=== PATIENT | male | born 1960 | race Caucasian/White ===

== ENCOUNTER 2020-02-21 09:43 | Emergency (ER) | payer MEDICAID, SELFPAY ==
--- NOTE | ~2020-02-21 | CT_ITS ---
EXAMINATION: CT abdomen pelvis wo con EXAM DATE: 02/21/2020 12:12 INDICATION: Low back pain, urinary frequency . TECHNIQUE: Spiral CT of the abdomen and pelvis was performed without contrast. Axial, coronal and sag ittal images were reviewed. The dose-length product (DLP) for this examination was 506.97 mGy-cm. T he exposure was tailored according to patient size (auto mA exposure control), and iterative reconstr uction (ASIR) was used as additional dose reduction technique. There is no prior study for compariso n. FINDINGS: There is no nephrolithiasis or hydronephrosis. There is moderate prostatomegaly. The blad oleksandr is unremarkable. Several subcentimeter liver cysts. Spleen, adrenal glands, pancreas are unremar kable. Gallbladder is unremarkable. No biliary obstruction. There is no retroperitoneal or pelvic lymphadenopathy. There is mild scattered arteriosclerotic disease. The appendix is normal. The stomach and small bowel are unremarkable. There is moderate amount of c olonic stool. There is mild sigmoid colonic diverticulosis. There is no adjacent inflammatory change to suggest diverticulitis. No free intraperitoneal gas. The heart is normal in size. There are n o pericardial or pleural effusions. The lung bases are unremarkable. There are no osteoblastic or o steolytic lesions identified. IMPRESSION: 1. No nephrolithiasis, hydronephrosis or acute intra-abdominal findings. 2. Moderate prostatomegaly. 3. Moderate colonic stool. 4. Mild sigmoid diverticulosis. Reviewed, dictated and finalized at [facility]. [employer] MON[employer] TECHNICIAN
[2020-02-21 09:57] VITALS: BP 151/98; PULSE 88; RESP 17; TEMP 36.5; O2SAT 99
[2020-02-21 10:23] LABS: Add Urine Microscopic? NO; Appearance Urine Clear (Clear); Bilirubin Urine Negative (Negative); Blood Urine Negative (Negative); Color Urine Yellow (Yellow); Glucose Urine UA Negative (Negative); Ketones Urine Negative (Negative); Leukocyte Esterase Ur Negative LEU/UL (Negative); Mucus Urine Rare /lpf; Nitrate Urine Negative (Negative); Protein Urine Negative (Negative); RBC Urine 0-2 /hpf (0-2); Specific Grav Ur 1.011 (1.001-1.035); Squamous Epithelial Cell Urine Rare /hpf (Few); Urobilinogen Urine Negative mg/dL (<2.0)
[2020-02-21 10:34] LABS: Basophils Absolute Auto 0.1 K/mm3 (0.0-0.1); Basophils Percent Auto 1.8 % (0.2-1.2); Eosinophils Absolute Auto 0.1 K/mm3 (0-0.3); Eosinophils Percent Auto 1.3 % (0-4.4); Hemoglobin 16.6 g/dL (14.0-18.0); Immature Granulocyte Absolute 0.01 K/mm3 (0.00-0.031); Immature Granulocyte Percent A 0.2 % (0-0.5); Lymphocytes Absolute Auto 1.25 K/mm3 (0.9-3.2); Lymphocytes Percent Auto 23.1 % (18.3-44.2); Mean Corpuscular HGB Conc 34.6 g/dl (32-36); Mean Corpuscular Hemoglobin 30.6 pg (26-34); Mean Corpuscular Volume 88.6 fl (80-100); Mean Platelet Volume 10.6 fl (7.4-10.4); Monocytes Absolute Auto 0.5 K/mm3 (0.1-0.6); Monocytes Percent Auto 8.7 % (2.6-8.5); Neutrophils Absolute Auto 3.5 K/mm3 (1.3-6.7); Neutrophils Percent Auto 64.9 % (45.5-73.1); Platelet Count Result 259 k/mm3 (150-375); Red Blood Count 5.42 M/mm3 (4.6-6.20); Red Cell Distribution Width 13.3 % (11.5-14.5); White Blood Count 5.4 K/mm3 (4.5-10.0)
--- NOTE | 2020-02-21 10:36 | ED.BACK ---
HPI - Back Pain/Injury General Chief Complaint: Urogenital-Male Stated Complaint: back pain, brown urine Time Seen by Provider: 02/21/20 10:04 Source: patient Mode of arrival: ambulatory Limitations: no limitations History of Present Illness HPI Narrative: This is a 60-year-old male that presents emergency department for dark urine that he noted this morning. Also reports over the last couple of days he has had some intermittent low back pain which is sharp in nature. Worse with movement and relieved with rest. Does not remember a certain injury. Does report he has recently started a new job and has to stand for a prolonged period of time. Reports history of diabetes and that he has been out of his Metformin. Reports he has been taking his wives dose the last week which is a lower dose. Denies fever, abdominal pain, nausea, vomiting, or dysuria. Related Data Allergies Allergy/AdvReac Type Severity Reaction Status Date / Time No Known Allergies Allergy Verified 02/21/20 11:03 Review of Systems Review of Systems: Narrative: CONSTITUTIONAL: Denies fever GASTROINTESTINAL: Denies abdominal pain, nausea, vomiting GENITOURINARY: Denies dysuria or hematuria. MUSCULOSKELETAL: Reports back pain, joint pain, and myalgia. NEUROLOGIC: Denies numbness, or weakness. All systems reviewed & are unremarkable except as noted in HPI and below PMFSH Past Medical History Medical History (Updated 02/21/20 @ 12:59 by Kirsten Tomlinson PA-C) History of diabetes mellitus History of hypertension Social History Social History Gender identity (if verbalized by the patient): Male Exam Narrative: Exam Narrative: GENERAL: Well-appearing, well-nourished, and in no acute distress. HEAD: Normocephalic, atraumatic. EYES: EOMI. CHEST: Clear to auscultation. No respiratory distress. No wheezes rales or rhonchi HEART: Regular rate and rhythm. No murmur heard. Normal peripheral pulses. ABDOMEN: Soft, nontender, nondistended, normal active bowel sounds. No CVA tenderness BACK: No midline spinal tenderness EXTREMITIES: Normal range of motion. No edema. Strength equal in bilateral lower extremities (5/5) SKIN: Warm, dry, no rash. NEURO: No focal deficits. Alert and oriented x3. PSYCH: Normal mood and affect Course Vital Signs Vital signs: Vital Signs Temperature 97.7 F 02/21/20 09:57 Pulse Rate 88 02/21/20 09:57 Respiratory Rate 17 02/21/20 09:57 Blood Pressure 151/98 H 02/21/20 09:57 Pulse Oximetry 99 02/21/20 09:57 Temperature 97.9 F 02/21/20 11:47 Pulse Rate 73 02/21/20 12:49 Respiratory Rate 17 02/21/20 12:49 Blood Pressure 124/85 02/21/20 12:49 Pulse Oximetry 100 02/21/20 12:49 MDM - Back Pain/Injury MDM Narrative Medical decision making narrative: Patient presents to the emergency department for lower back pain and dark urine today. Patient is afebrile and nontoxic-appearing. Blood pressure mildly elevated on arrival, this normalized without intervention. Patient is neurologically intact. CBC and metabolic panel without concerning findings. UA is normal. CRP is not elevated. CT scan of the abdomen and pelvis is without acute findings. Patient and family updated on case findings. He was instructed to rest, ice and take [id number] pain medication as needed. He is to follow-up with his primary care doctor. He was given warnings to return to the ER Lab Data Attestation: I reviewed the patient's lab results. Result diagrams: 02/21/20 10:25 02/21/20 10:24 Labs: Lab Results 02/21/20 02/21/20 02/21/20 Range/Units 10:09 10:24 10:24 WBC (4.5-10.0) K/mm3 RBC (4.6-6.20) M/mm3 Hgb (14.0-18.0) g/dL Hct (42.0-52.0) % MCV (80-100) fl MCH (26-34) pg MCHC (32-36) g/dl RDW (11.5-14.5) % Plt Count (150-375) k/mm3 MPV (7.4-10.4) fl Immature Gran % (Auto) (0-0.5) % Neut % (Auto) (45.5-73.1) % Lymph % (
--- NOTE | 2020-02-21 10:39 | PC.NURSE ---
called chem, added on CMP and C-Reactive prot
[2020-02-21 11:01] LABS: Alanine Aminotransferase 15 U/L (4-50); Albumin Level 3.9 g/dL (3.5-5.1); Alkaline Phosphatase 79 U/L (38-126); Anion Gap 4 mmol/L (8-16); Aspartate Amino Transferase 20 U/L (17-59); Bilirubin,Total 0.5 mg/dL (0.2-1.3); Blood Urea Nitrogen 11 mg/dL (9-20); CRP < 0.5 mg/dL (<1.0); Calcium 8.9 mg/dL (8.4-10.2); Carbon Dioxide 29 mmol/L (22-30); Chloride 102 mmol/L (98-107); Estimated CRCL calculation 92 ml/min; Estimated Glomerular Filt Rate > 60; Glucose 115 mg/dL (75-110); Sodium 135 mmol/L (137-145)
[2020-02-21 11:04] VITALS: BP 125/76; PULSE 76; RESP 15; O2SAT 98
--- NOTE | 2020-02-21 11:38 | PC.NURSE ---
Called Gisele landon, added on HGB A1C 1134
[2020-02-21 11:47] VITALS: BP 105/63; PULSE 75; RESP 15; TEMP 36.6; O2SAT 99
[2020-02-21 11:56] LABS: Hemoglobin A1C 6.3 % (<5.7)
--- NOTE | 2020-02-21 12:06 | PC.NURSE ---
Pt to Ct scan via stretcher.
[2020-02-21 12:49] VITALS: BP 124/85; PULSE 73; RESP 17; O2SAT 100
== END 2020-02-21 13:23 | disposition home or self-care (01) ==
PROVIDERS: Physician Assistant; Emergency Provider Emergency Medicine; PCP Emergency Medicine
DX: M54.5 Low back pain (principal); E11.9 Type 2 diabetes mellitus without complications; I10 Essential (primary) hypertension; N40.0 Benign prostatic hyperplasia without lower urinary tract symptoms; K57.90 Diverticulosis of intestine, part unspecified, without perforation or abscess without bleeding
CPT/HCPCS: 36415; 74176; 80053; 81003; 83036; 85025; 86140; 96365; 99284; J0131

== ENCOUNTER 2020-02-29 12:18 | Outpatient (NON) | payer MEDICAID, SELFPAY ==
[2020-03-01 19:17] LABS: SARS-CoV-2 RNA PCR Negative
== END 2020-02-29 12:19 ==
PROVIDERS: PCP Emergency Medicine; Visit Provider Emergency Medicine
DX: Z20.828 Contact with and (suspected) exposure to other viral communicable diseases (principal); R05 Cough
CPT/HCPCS: 87635; C9803; U0003

== ENCOUNTER 2020-04-26 10:05 | Emergency (ER) | payer OTHER, SELFPAY ==
[2020-04-26 10:13] VITALS: BP 121/74; PULSE 80; RESP 12; TEMP 36.6; O2SAT 100
--- NOTE | 2020-04-26 11:46 | ED.GENADULT ---
HPI - General Adult General Chief complaint: Skin/Abscess/Foreign Body Stated complaint: FINGERS BROKE OUT Time Seen by Provider: 04/26/20 10:59 Source: patient Mode of arrival: ambulatory Limitations: no limitations History of Present Illness HPI narrative: Patient presents with chief complaint of rash on his fingertips that he has noticed worsening of the past few weeks. 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 Patient states that his coworker saw the rash on his fingers yesterday and stated that he needs it to be checked out to make sure that he was not contagious. Patient reports rash is slightly pruritic but otherwise not bothersome. He denies any drainage from the lesions, fever, chills, tracking, exposure to scabies or any other concerns. Related Data Allergies Allergy/AdvReac Type Severity Reaction Status Date / Time No Known Allergies Allergy Verified 02/21/20 11:03 Review of Systems Review of Systems: Narrative: CONSTITUTIONAL: Denies fever, chills, or sweats. EYES: Denies visual changes, redness, or discharge. ENT: Denies rhinorrhea, congestion, sore throat, or otalgia. CARDIOVASCULAR: Denies chest pain, palpitations, or edema. RESPIRATORY: Denies cough or dyspnea. GASTROINTESTINAL: Denies abdominal pain, nausea, vomiting, or diarrhea. GENITOURINARY: Denies dysuria or hematuria. SKIN: Reports rash and itching. MUSCULOSKELETAL: Denies back pain, joint pain, or myalgia. NEUROLOGIC: Denies headache, numbness, dizziness, or weakness. PSYCHIATRIC: Denies anxiety or depression. PMFSH Past Medical History Medical History (Updated 04/26/20 @ 11:50 by Josemanuel Schulte PA-C) History of diabetes mellitus History of hypertension Social History Social History Gender identity (if verbalized by the patient): Male Exam Narrative: Exam Narrative: GENERAL: Well-appearing, well-nourished, and in no acute distress. HEAD: Normocephalic, atraumatic. EYES: PERRLA and EOMI. NECK: Supple. No adenopathy or masses. No carotid bruits or JVD CHEST: No respiratory distress. No tachypnea or shortness of breath EXTREMITIES: Normal range of motion. No edema. SKIN: Dyshidrotic eczema noted on patient bilateral hands. There are no signs of infection, erythema, ecchymosis, drainage from the areas. Patient skin is dry. no signs of scabies or tracking. Warm, dry, no rash. NEURO: No focal deficits. Alert and oriented x3. PSYCH: Normal mood and affect. Course Vital Signs Vital signs: Vital Signs Temperature 97.8 F 04/26/20 10:13 Pulse Rate 80 04/26/20 10:13 Respiratory Rate 12 04/26/20 10:13 Blood Pressure 121/74 04/26/20 10:13 Pulse Oximetry 100 04/26/20 10:13 Temperature 97.8 F 04/26/20 10:13 Pulse Rate 80 04/26/20 10:13 Respiratory Rate 12 04/26/20 10:13 Blood Pressure 121/74 04/26/20 10:13 Pulse Oximetry 100 04/26/20 10:13 Medical Decision Making MDM Narrative Medical decision making narrative: Discussed with patient her diagnosis of dyshidrotic eczema and the plan to keep hands well moisturized but clean and dry and to apply triamcinolone ointment. Patient instructed to follow-up with his primary care for reevaluation of the areas. He has been informed that if they persist or worsen he may need dermatology consult. Differential Diagnosis Differential Diagnosis: Cellulitis, abscess, scabies, bedbugs, dyshidrotic eczema Vital Signs Vital Signs: Vital Signs Temperature 97.8 F 04/26/20 10:13 Pulse Rate 80 04/26/20 10:13 Respiratory Rate 12 04/26/20 10:13 Blood Pressure 121/74 04/26/20 10:13 Pulse Oximetry 04/26/20 10:13 Temperature 97.8 F 04/26/20 10:13 Pulse Rate 80 04/26/20 10:13 Respiratory Rate 12 04/26/20 10:13 Blood Pressure 121/74 04/26/20 10:13 Pulse Oximetry 100 04/26/20 10:13 Discharge Plan Discharge Clinical Impression: Dyshidrotic eczema Patient Dispositi
== END 2020-04-26 12:09 | disposition home or self-care (01) ==
PROVIDERS: Emergency Provider Emergency Medicine; PCP Emergency Medicine
DX: L30.1 Dyshidrosis [pompholyx] (principal); E11.9 Type 2 diabetes mellitus without complications; I10 Essential (primary) hypertension
CPT/HCPCS: 99283

== ENCOUNTER → 2020-05-25 06:55 | Outpatient (CLI) | payer OTHER, SELFPAY ==
[2020-05-25 20:42] LABS: SARS-CoV-2 RNA PCR Negative
== END ==
PROVIDERS: PCP Emergency Medicine; Visit Provider Emergency Medicine
DX: Z20.822 Contact with and (suspected) exposure to COVID-19 (principal)
CPT/HCPCS: C9803; U0003; U0005

== ENCOUNTER → 2020-05-31 11:18 | Outpatient (CLI) | payer OTHER, SELFPAY ==
[2020-05-31 23:32] LABS: SARS-CoV-2 RNA PCR Negative
== END ==
PROVIDERS: PCP Emergency Medicine; Visit Provider Emergency Medicine
DX: Z20.822 Contact with and (suspected) exposure to COVID-19 (principal)
CPT/HCPCS: C9803; U0003; U0005

== ENCOUNTER 2020-06-13 17:45 | Emergency (ER) | payer OTHER, SELFPAY ==
[2020-06-13 17:49] VITALS: BP 146/91; PULSE 91; RESP 18; TEMP 35.9; O2SAT 100
--- NOTE | 2020-06-13 18:18 | ED.GENADULT ---
HPI - General Adult General Chief complaint: Unspecified Stated complaint: covid vaccine, feel funny Time Seen by Provider: 06/13/20 17:56 Source: patient and family Mode of arrival: ambulatory Limitations: no limitations History of Present Illness HPI narrative: Patient is a 60-year-old male who presents to emergency department for evaluation of chills and body aches an episode of nausea after receiving his COVID-19 vaccine this morning this was the patient's first dose patient on arrival is in the room in no distress does not appear uncomfortable does note headache notes that he had felt fine prior to getting the vaccine and has not taken anything other than ibuprofen for his symptoms Related Data Allergies Allergy/AdvReac Type Severity Reaction Status Date / Time No Known Allergies Allergy Verified 06/13/20 17:52 Review of Systems Review of Systems: All systems reviewed & are unremarkable except as noted in HPI and below PMFSH Past Medical History Medical History History of diabetes mellitus History of hypertension Social History Social History Gender identity (if verbalized by the patient): Male Exam Narrative: Exam Narrative: GENERAL: Well-appearing, well-nourished, and in no acute distress. HEAD: Normocephalic, atraumatic. EYES: PERRLA and EOMI. ENT: Nares clear, no rhinorrhea or epistaxis. Mucous membranes moist. CHEST: Clear to auscultation. No respiratory distress. No wheezes rales or rhonchi HEART: Regular rate and rhythm. No murmur heard. EXTREMITIES: Normal range of motion. No edema. SKIN: Warm, dry, no rash. NEURO: No focal deficits. Alert and oriented x3. PSYCH: Normal mood and affect. Course Course Emergency Course: Patient in the room in no distress aware of case findings treatment plan and diagnosis Vital Signs Vital signs: Vital Signs Temperature 96.6 F L 06/13/20 17:49 Pulse Rate 91 06/13/20 17:49 Respiratory Rate 18 06/13/20 17:49 Blood Pressure 146/91 H 06/13/20 17:49 Pulse Oximetry 100 06/13/20 17:49 Temperature 96.6 F L 06/13/20 17:49 Pulse Rate 91 06/13/20 17:49 Respiratory Rate 18 06/13/20 17:49 Blood Pressure 146/91 H 06/13/20 17:49 Pulse Oximetry 100 06/13/20 17:49 Medical Decision Making MDM Narrative Medical decision making narrative: Patient in the room in no distress aware of case findings treatment plan diagnosis symptoms likely related to receiving the vaccine felt appropriate for outpatient reevaluation given reasons to return Vital Signs Vital Signs: Vital Signs Temperature 96.6 F L 06/13/20 17:49 Pulse Rate 91 06/13/20 17:49 Respiratory Rate 18 06/13/20 17:49 Blood Pressure 146/91 H 06/13/20 17:49 Pulse Oximetry 100 06/13/20 17:49 Temperature 96.6 F L 06/13/20 17:49 Pulse Rate 91 06/13/20 17:49 Respiratory Rate 18 06/13/20 17:49 Blood Pressure 146/91 H 06/13/20 17:49 Pulse Oximetry 100 06/13/20 17:49 Discharge Plan Discharge Clinical Impression: Adverse reaction to vaccine Patient Disposition: Home, Self-Care Condition: Stable Instructions: Antibiotic Form, Allergies (ED) Additional Instructions: Follow up with your primary care provider within 5-7 days. Go to ER for shortness of breath, difficulty breathing, chest pain, fever/chills, weakness, nauseau/vomitting, etc. or any other concerns. Stay well-hydrated Take any prescribed medications as directed. Follow patient education sheet If you do not have a drug allergy to tylenol or motrin and can tolerate it then take tylenol or motrin as needed for discomfort/pain. Prescriptions: No Action lisinopril 10 mg tablet 10 mg PO DAILY 7 Days Qty: 7 RF: 0 triamcinolone acetonide 0.1 % ointment 1 applic topical BID Qty: 15 RF: 0 Follow-up/Referrals: eWs Venegas MD [Primary Care Provider] - [place]
== END 2020-06-13 18:30 | disposition home or self-care (01) ==
PROVIDERS: Emergency Provider Emergency Medicine; PCP Emergency Medicine
DX: R51.9 Headache, unspecified (principal); R68.83 Chills (without fever); R11.0 Nausea; T50.B95A Adverse effect of other viral vaccines, initial encounter
CPT/HCPCS: 99281

== ENCOUNTER 2020-07-13 07:33 | Emergency (ER) | payer OTHER, SELFPAY ==
[2020-07-13 07:40] VITALS: BP 164/94; PULSE 87; RESP 18; TEMP 37.1; O2SAT 98
[2020-07-13 07:42] LABS: Glucose Point of Care 235 (65-105)
--- NOTE | 2020-07-13 08:02 | ED.GENADULT ---
HPI - General Adult General Chief complaint: Recheck/Abnormal Lab/Rx Stated complaint: high blood sugar Time Seen by Provider: 07/13/20 07:36 Source: RN notes reviewed History of Present Illness HPI narrative: Patient presents to emergency department from home for hyperglycemia. Patient states that he woke this morning and had a blood sugar of 472. Patient states he is on Metformin at 1000 mg twice a day which had been increased approximately months ago states he is taking his Metformin this morning came to the ER for further evaluation the blood sugar has progressively decreased he states he is not eating anything today. He states that recently his blood sugars have been running around 260 he denies any fevers or chills chest pain shortness of breath abdominal pain nausea vomiting or any other symptoms Related Data Home Medications Medication Instructions Recorded Confirmed lisinopril 20 mg PO DAILY 07/13/20 07/13/20 metformin 1,000 mg PO BID 07/13/20 07/13/20 simvastatin 10 mg PO HS 07/13/20 07/13/20 Allergies Allergy/AdvReac Type Severity Reaction Status Date / Time No Known Allergies Allergy Verified 07/13/20 07:48 Review of Systems Review of Systems: Narrative: Gen.: Denies fevers or chills ENT: Denies congestion Respiratory: Denies shortness of breath or cough CV: Denies chest pain or palpitations GI: Denies abdominal pain nausea, emesis or diarrhea Musculoskeletal: Denies back pain or muscle pain Neuro: Denies numbness, tingling, weakness or focal weakness Skin: Denies rash Endocrine: See HPI Except as documented, all other systems reviewed and negative [facility] Past Medical History Medical History History of diabetes mellitus History of hypertension Social History Social History (Updated 07/13/20 @ 08:03 by Jasper Zhou DO) Smoking status: Never smoker Gender identity (if verbalized by the patient): Male Exam Narrative: Exam Narrative: APPEARANCE: No acute distress, nontoxic, resting in bed EYES: EOMI HEENT: Normocephalic, atraumatic, OMM RESPIRATORY: No respiratory distress Clear to auscultation bilaterally with no rhonchi wheezing or rales. CARDIOVASCULAR: Regular rate and rhythm without murmurs rubs or gallops. ABDOMINAL: Soft, nontender, nondistended, no rebound or guarding MUSCULOSKELETAl: Moves all extremities. No clubbing, cyanosis or edema. NEURO: Awake and alert. Following commands, speech normal, no focal deficits SKIN:: Warm, dry. No rashes lesions or abrasions PSYCHIATRIC: Normal affect/mood, Course Course Emergency Course: Discussed with patient results of workup and diagnosis. Discussed need for follow-up with primary care, proper use of medication, and reasons to return to the emergency department. Patient understands and agrees to current treatment plan Vital Signs Vital signs: Vital Signs Temperature 98.8 F 07/13/20 07:40 Pulse Rate 87 07/13/20 07:40 Respiratory Rate 18 07/13/20 07:40 Blood Pressure 164/94 H 07/13/20 07:40 Pulse Oximetry 98 07/13/20 07:40 Temperature 98.8 F 07/13/20 07:40 Pulse Rate 75 07/13/20 08:57 Respiratory Rate 18 07/13/20 08:57 Blood Pressure 125/79 07/13/20 08:57 Pulse Oximetry 100 07/13/20 08:57 Medical Decision Making Vital Signs Vital Signs: Vital Signs Temperature 98.8 F 07/13/20 07:40 Pulse Rate 87 07/13/20 07:40 Respiratory Rate 18 07/13/20 07:40 Blood Pressure 164/94 H 07/13/20 07:40 Pulse Oximetry 98 07/13/20 07:40 Temperature 98.8 F 07/13/20 07:40 Pulse Rate 75 07/13/20 08:57 Respiratory Rate 18 07/13/20 08:57 Blood Pressure 125/79 07/13/20 08:57 Pulse Oximetry 100 07/13/20 08:57 Lab Data Result diagrams: 07/13/20 08:09 07/13/20 08:09 Labs: Lab Results 07/13/20 07/13/20 07/13/20 Range/Units 07:40 08:09 08:09 WBC 6.5 (4.5-10.0) K/mm3 RBC 5.25 (4.6-
[2020-07-13 08:09] VITALS: BP 126/87; PULSE 83; RESP 16; O2SAT 98
[2020-07-13] MEDS: SODIUM CHLORIDE 0.9% IV 1,000 ML 999 ML IV CONT (08:14)
[2020-07-13 08:17] LABS: Basophils Absolute Auto 0.1 K/mm3 (0.0-0.1); Basophils Percent Auto 1.8 % (0.2-1.2); Eosinophils Absolute Auto 0.1 K/mm3 (0-0.3); Eosinophils Percent Auto 0.9 % (0-4.4); Hematocrit 46.4 % (42.0-52.0); Immature Granulocyte Absolute 0.02 K/mm3 (0.00-0.031); Immature Granulocyte Percent A 0.3 % (0-0.5); Lymphocytes Percent Auto 27.7 % (18.3-44.2); Mean Corpuscular HGB Conc 34.5 g/dl (32-36); Mean Corpuscular Hemoglobin 30.5 pg (26-34); Mean Corpuscular Volume 88.4 fl (80-100); Mean Platelet Volume 10.2 fl (7.4-10.4); Monocytes Absolute Auto 0.7 K/mm3 (0.1-0.6); Monocytes Percent Auto 10.3 % (2.6-8.5); Neutrophils Absolute Auto 3.8 K/mm3 (1.3-6.7); Platelet Count Result 282 k/mm3 (150-375); Red Blood Count 5.25 M/mm3 (4.6-6.20); Red Cell Distribution Width 13.8 % (11.5-14.5); White Blood Count 6.5 K/mm3 (4.5-10.0)
[2020-07-13 08:25] VITALS: BP 135/94; PULSE 83; RESP 16; O2SAT 98
[2020-07-13 08:27] LABS: Alanine Aminotransferase 20 U/L (4-50); Albumin Level 4.4 g/dL (3.5-5.1); Alkaline Phosphatase 83 U/L (38-126); Anion Gap 8 mmol/L (8-16); Aspartate Amino Transferase 20 U/L (17-59); Bilirubin,Total 0.4 mg/dL (0.2-1.3); Blood Urea Nitrogen 9 mg/dL (9-20); Calcium 9.2 mg/dL (8.4-10.2); Carbon Dioxide 25 mmol/L (22-30); Chloride 102 mmol/L (98-107); Estimated CRCL calculation 109 ml/min; Estimated Glomerular Filt Rate > 60; Glucose 183 mg/dL (75-110); Potassium 4.3 mmol/L (3.4-5.0); Sodium 135 mmol/L (137-145)
[2020-07-13 08:37] LABS: Add Urine Microscopic? YES; Appearance Urine Clear (Clear); Bilirubin Urine Negative (Negative); Blood Urine Negative (Negative); Color Urine Straw (Yellow); Glucose Urine UA 3+ mg/dL (Negative); Ketones Urine Negative (Negative); Leukocyte Esterase Ur Negative LEU/UL (Negative); Mucus Urine Rare /lpf; Nitrate Urine Negative (Negative); Protein Urine Negative (Negative); RBC Urine 0-2 /hpf (0-2); Specific Grav Ur 1.007 (1.001-1.035); Urobilinogen Urine Negative mg/dL (<2.0); WBC Urine 0-3 /hpf
[2020-07-13 08:57] VITALS: BP 125/79; PULSE 75; RESP 18; O2SAT 100
[2020-07-13 09:00] LABS: Glucose Point of Care 118 (65-105)
[2020-07-13 09:27] VITALS: BP 140/94; PULSE 78; RESP 18; O2SAT 100
== END 2020-07-13 09:28 | disposition home or self-care (01) ==
PROVIDERS: Emergency Provider Emergency Medicine; PCP Emergency Medicine
DX: E11.65 Type 2 diabetes mellitus with hyperglycemia (principal); I10 Essential (primary) hypertension; Z79.84 Long term (current) use of oral hypoglycemic drugs
CPT/HCPCS: 36415; 80053; 81001; 82948; 85025; 96360; 99283; J7030

== ENCOUNTER 2020-07-14 15:12 | Emergency (ER) | payer OTHER, SELFPAY ==
--- NOTE | ~2020-07-14 | CT_ITS ---
EXAMINATION: CT brain wo con DATE: 07/14/2020 17:30 INDICATION: Headache. Dizziness. TECHNIQUE: Computed tomography (CT) of the head was performed without intravenous contrast. The mA wa s adjusted according to patient size. Iterative reconstruction technique was employed. Exam dose: 60 5.33 mGy-cm total exam DLP. COMPARISON: None FINDINGS: Bilateral carotid sinus internal carotid artery calcifications are noted. No intracranial mass lesion or hemorrhage or cerebrovascular accident is evident. No midline shift or mass effect. Normal ventricular size. No subdural or epidural hematoma is detected. There is focal opacification of the mid right ethmoid air cell area. The included paranasal sinuses a nd the mastoid air cells are otherwise normally developed and aerated. No fracture or bone destruction of the cranial vault. IMPRESSION: Cerebral atherosclerosis No acute intracranial finding Reviewed, dictated and finalized at [facility]. Reviewed, dictated and finalized at [facility].
[2020-07-14 15:15] VITALS: BP 143/85; PULSE 92; RESP 14; TEMP 35.9; O2SAT 98
--- NOTE | 2020-07-14 15:50 | ECG_ITS ---
Measurements Intervals [place] Rate: 84 P: 43 NH: 161 QRS: 10 QRSD: 97 T: 59 QT: 360 QTc: 427 Interpretive Statements SINUS RHYTHM NORMAL ECG Electronically Signed On 07-14-2020 17:29:29 CDT by Emil Hawk D.O.
[2020-07-14 16:10] LABS: Basophils Absolute Auto 0.1 K/mm3 (0.0-0.1); Basophils Percent Auto 1.7 % (0.2-1.2); Eosinophils Absolute Auto 0.1 K/mm3 (0-0.3); Eosinophils Percent Auto 1.8 % (0-4.4); Hematocrit 45.4 % (42.0-52.0); Hemoglobin 15.8 g/dL (14.0-18.0); Immature Granulocyte Absolute 0.03 K/mm3 (0.00-0.031); Immature Granulocyte Percent A 0.4 % (0-0.5); Lymphocytes Absolute Auto 2.36 K/mm3 (0.9-3.2); Lymphocytes Percent Auto 30.5 % (18.3-44.2); Mean Corpuscular HGB Conc 34.8 g/dl (32-36); Mean Corpuscular Hemoglobin 30.7 pg (26-34); Mean Corpuscular Volume 88.2 fl (80-100); Mean Platelet Volume 10.4 fl (7.4-10.4); Monocytes Absolute Auto 0.6 K/mm3 (0.1-0.6); Monocytes Percent Auto 7.6 % (2.6-8.5); Neutrophils Absolute Auto 4.5 K/mm3 (1.3-6.7); Platelet Count Result 301 k/mm3 (150-375); Red Blood Count 5.15 M/mm3 (4.6-6.20); Red Cell Distribution Width 13.6 % (11.5-14.5); White Blood Count 7.8 K/mm3 (4.5-10.0)
[2020-07-14 16:27] LABS: Anion Gap 5 mmol/L (8-16); Blood Urea Nitrogen 12 mg/dL (9-20); Calcium 8.8 mg/dL (8.4-10.2); Carbon Dioxide 27 mmol/L (22-30); Chloride 105 mmol/L (98-107); Estimated CRCL calculation 92 ml/min; Estimated Glomerular Filt Rate > 60; Glucose 126 mg/dL (75-110); Potassium 3.8 mmol/L (3.4-5.0); Sodium 137 mmol/L (137-145)
[2020-07-14 17:00] VITALS: BP 140/103; PULSE 84; RESP 16; O2SAT 97
--- NOTE | 2020-07-14 17:15 | ED.RECABL ---
HPI - Recheck/Abnormal Lab/Rx General Chief Complaint: Recheck/Abnormal Lab/Rx Stated Complaint: high blood pressure Time Seen by Provider: 07/14/20 16:55 Source: patient Mode of arrival: ambulatory Limitations: no limitations History of Present Illness HPI narrative: This is a 60 year old male with history of hypertension who presents for evaluation of elevated blood pressure. Patient reports he has had frequent headaches over the past 2 weeks. He also reports worsening headache and dizziness in the morning. He denies having a headache currently. He reports he has been monitoring his blood pressure over the past 24 hours. He states his BP monitor is reading in the red . He states he started taking his currently medication lisinopril 6 months ago. He states his PCP changed him from an unknown medication. His PCP increased his lisinopril to 20 mg 1 month ago. He has come in today because his friends are worried he will have a stroke. He denies focal deficits. He was evaluated in ER yesterday for hyperglycemia and he states he feels better. He denies chest pain or sob. Related Data Home Medications Medication Instructions Recorded Confirmed lisinopril 20 mg PO DAILY 07/13/20 07/13/20 metformin 1,000 mg PO BID 07/13/20 07/13/20 simvastatin 10 mg PO HS 07/13/20 07/13/20 Allergies Allergy/AdvReac Type Severity Reaction Status Date / Time No Known Allergies Allergy Verified 07/13/20 07:48 Review of Systems Review of Systems: All systems reviewed & are unremarkable except as noted in HPI and below PMFSH Past Medical History Medical History History of diabetes mellitus History of hypertension Social History Social History (Updated 07/13/20 @ 08:03 by Jasper Zhou DO) Smoking status: Never smoker Gender identity (if verbalized by the patient): Male Exam Const: General: no acute distress and alert Orientation/consciousness: patient oriented x3 HENMT: Ears: TM's normal bilaterally Eyes: Pupils: Equal, round and reactive pupils present EOM: EOMs intact bilaterally Resp: Effort & Inspection: normal respiratory effort and no retractions Auscultation: clear to auscultation bilaterally Cardio: Rate: regular rate Rhythm: regular rhythm Heart sounds: no murmurs GI: GI Palp: Yes Soft to palpation, No Tenderness to palpation present (GI) and No Guarding due to palpation present (GI) Auscultation: normal bowel sounds Skin: General skin exam: normal color Rashes: no rashes Neuro: General: patient oriented x3, moves all extremities and CN's II-XI intact bilaterally Psych: Mental Status: mental status grossly normal Affect: normal affect Course Reevaluation(s) Reevaluation #1: I discussed with patient that is blood pressure is running at his baseline. His BP at home run systolic 130-149 with diastolic 85-101. This appears to be stable. He has no chest pain, sob, headache or focal deficits. He will continue to follow up with PCP for BP checks. His CT shows sinus disease so I Will place him on meds. No antibiotics Date: 07/14/20 Time: 17:55 Vital Signs Vital signs: Vital Signs Temperature 96.6 F L 07/14/20 15:15 Pulse Rate 92 07/14/20 15:15 Respiratory Rate 14 07/14/20 15:15 Blood Pressure 143/85 H 07/14/20 15:15 Pulse Oximetry 98 07/14/20 15:15 Temperature 96.6 F L 07/14/20 15:15 Pulse Rate 76 07/14/20 18:15 Respiratory Rate 14 07/14/20 18:15 Blood Pressure 132/87 07/14/20 18:15 Pulse Oximetry 96 07/14/20 18:15 MDM - Recheck/Abnormal Lab/Rx Lab Data Result diagrams: 07/14/20 16:02 07/14/20 16:02 Labs: Lab Results 07/14/20 07/14/20 Range/Units 16:02 16:02 WBC 7.8 (4.5-10.0) K/mm3 RBC 5.15 (4.6-6.20) M/mm3 Hgb 15.8 (14.0-18.0) g/dL Hct 45.4 (42.0-52.0) % MCV 88.2 (80-100) fl MCH 30.7 (26-34) pg MCHC 34.8 (32-36) g/dl RD
[2020-07-14 17:38] VITALS: BP 135/94; BP 141/94; BP 142/94; PULSE 82; PULSE 85
[2020-07-14 17:57] VITALS: BP 132/96; PULSE 77; RESP 16; O2SAT 99
[2020-07-14 18:15] VITALS: BP 132/87; PULSE 76; RESP 14; O2SAT 96
== END 2020-07-14 18:17 | disposition home or self-care (01) ==
PROVIDERS: Emergency Medicine; Emergency Provider General Practice; PCP Emergency Medicine
DX: I10 Essential (primary) hypertension (principal); R42 Dizziness and giddiness; J32.9 Chronic sinusitis, unspecified; E11.9 Type 2 diabetes mellitus without complications; Z79.84 Long term (current) use of oral hypoglycemic drugs
CPT/HCPCS: 36415; 70450; 80048; 85025; 93005; 99283; 99284

== ENCOUNTER 2020-09-16 10:55 | Emergency (ER) | payer OTHER, SELFPAY ==
[2020-09-16 11:49] VITALS: BP 122/81; PULSE 78; RESP 16; TEMP 37; O2SAT 98
[2020-09-16 12:19] LABS: Basophils Absolute Auto 0.1 K/mm3 (0.0-0.1); Basophils Percent Auto 2.6 % (0.2-1.2); Eosinophils Absolute Auto 0.1 K/mm3 (0-0.3); Eosinophils Percent Auto 2.2 % (0-4.4); Hematocrit 44.9 % (42.0-52.0); Hemoglobin 15.3 g/dL (14.0-18.0); Immature Granulocyte Absolute 0.02 K/mm3 (0.00-0.031); Immature Granulocyte Percent A 0.4 % (0-0.5); Lymphocytes Absolute Auto 1.98 K/mm3 (0.9-3.2); Lymphocytes Percent Auto 36.7 % (18.3-44.2); Mean Corpuscular HGB Conc 34.1 g/dl (32-36); Mean Corpuscular Hemoglobin 30.1 pg (26-34); Mean Corpuscular Volume 88.4 fl (80-100); Mean Platelet Volume 10.6 fl (7.4-10.4); Monocytes Absolute Auto 0.6 K/mm3 (0.1-0.6); Monocytes Percent Auto 10.9 % (2.6-8.5); Neutrophils Absolute Auto 2.5 K/mm3 (1.3-6.7); Neutrophils Percent Auto 47.2 % (45.5-73.1); Platelet Count Result 328 k/mm3 (150-375); Red Blood Count 5.08 M/mm3 (4.6-6.20); Red Cell Distribution Width 13.9 % (11.5-14.5); White Blood Count 5.4 K/mm3 (4.5-10.0)
[2020-09-16 12:27] LABS: Add Urine Microscopic? YES; Appearance Urine Cloudy (Clear); Bilirubin Urine Negative (Negative); Blood Urine 2+ (Negative); Budding Yeast Urine Present /hpf; Color Urine Red (Yellow); Glucose Urine UA 1+ mg/dL (Negative); Ketones Urine Negative (Negative); Leukocyte Esterase Ur Negative LEU/UL (Negative); Nitrate Urine Negative (Negative); Protein Urine 2+ mg/dL (Negative); RBC Urine >75 /hpf (0-2); Specific Grav Ur 1.028 (1.001-1.035); Urobilinogen Urine Negative mg/dL (<2.0)
[2020-09-16 12:29] LABS: Alanine Aminotransferase 23 U/L (4-50); Albumin Level 4.3 g/dL (3.5-5.1); Alkaline Phosphatase 64 U/L (38-126); Anion Gap 8 mmol/L (8-16); Aspartate Amino Transferase 24 U/L (17-59); Bilirubin,Total 0.6 mg/dL (0.2-1.3); Blood Urea Nitrogen 13 mg/dL (9-20); Calcium 9.6 mg/dL (8.4-10.2); Carbon Dioxide 25 mmol/L (22-30); Chloride 108 mmol/L (98-107); Estimated CRCL calculation 92 ml/min; Estimated Glomerular Filt Rate > 60; Glucose 126 mg/dL (75-110); Potassium 4.1 mmol/L (3.4-5.0); Sodium 141 mmol/L (137-145)
[2020-09-16 13:46] VITALS: BP 101/80; PULSE 77; RESP 12; O2SAT 99
[2020-09-16 14:46] VITALS: BP 129/94; PULSE 67; RESP 16; TEMP 36.4; O2SAT 100
--- NOTE | 2020-09-16 15:32 | ED.MALEGU ---
HPI - Male Genitourinary General Chief complaint: Urogenital-Male Stated complaint: hematuria Time Seen by Provider: 09/16/20 15:16 History of Present Illness HPI Narrative: Bright red blood in his urine this morning and again when he gave the urine sample here. He denies dyuria, frequency, fever, back pain, hesitancy, or any additional symptoms. Related Data Home Medications Medication Instructions Recorded Confirmed lisinopril 20 mg PO DAILY 07/13/20 07/13/20 metformin 1,000 mg PO BID 07/13/20 07/13/20 simvastatin 10 mg PO HS 07/13/20 07/13/20 Allergies Allergy/AdvReac Type Severity Reaction Status Date / Time No Known Allergies Allergy Verified 09/16/20 14:50 Review of Systems Review of Systems: All systems reviewed & are unremarkable except as noted in HPI and below Constitutional: Constitutional: Denies chills and Denies fever(s) Cardiovascular: Cardiovascular: Denies chest pain Respiratory: Respiratory: Denies dyspnea Gastrointestinal: Gastrointestinal: Denies abdominal pain, Denies nausea and Denies vomiting Genitourinary: Genitourinary: Reports hematuria, Denies oliguria, Denies dysuria, Denies urinary frequency and Denies urinary incontinence Musculoskeletal: Musculoskeletal: Denies back pain Neurologic: Denies dizziness and Denies weakness [facility] Past Medical History Medical History History of diabetes mellitus History of hypertension Social History Social History (Updated 07/13/20 @ 08:03 by Jasper Zhou DO) Smoking status: Never smoker Gender identity (if verbalized by the patient): Male Exam Const: General: healthy appearing, no acute distress and alert HENMT: Head: normal to inspection Resp: Effort & Inspection: normal respiratory effort Auscultation: clear to auscultation bilaterally Cardio: Rate: regular rate GI: GI Palp: Yes Soft to palpation and No Tenderness to palpation present (GI) : General: Yes bladder normal to palpation Skin: General skin exam: normal color and no pallor Neuro: General: patient oriented x3, moves all extremities and no focal motor deficits Cranial nerves: Yes CN's II-XII intact bilaterally Gait exam (Neuro): Normal gait present Extrem: General: normal to inspection Psych: Appearance: grossly normal Mental Status: mental status grossly normal Affect: normal affect Course Vital Signs Vital signs: Vital Signs Temperature 37.0 C 09/16/20 11:49 Pulse Rate 78 09/16/20 11:49 Respiratory Rate 16 09/16/20 11:49 Blood Pressure 122/81 09/16/20 11:49 Pulse Oximetry 98 09/16/20 11:49 Temperature 36.4 C 09/16/20 14:46 Pulse Rate 67 09/16/20 14:46 Respiratory Rate 16 09/16/20 14:46 Blood Pressure 129/94 H 09/16/20 14:46 Pulse Oximetry 100 09/16/20 14:46 MDM - Male Genitourinary MDM Narrative Medical decision making narrative: not retaining on bladder scan. No sign of infection on UA. He will need follow-up. Differential Diagnosis Differential diagnosis: Likely urinary tract infection and acute retention of urine Medical Records Attestation: I reviewed the patient's medical records. Lab Data Attestation: I reviewed the patient's lab results. Result diagrams: 09/16/20 12:07 09/16/20 12:09 Labs: Lab Results 09/16/20 09/16/20 09/16/20 Range/Units 11:59 12:07 12:09 WBC 5.4 (4.5-10.0) K/mm3 RBC 5.08 (4.6-6.20) M/mm3 Hgb 15.3 (14.0-18.0) g/dL Hct 44.9 (42.0-52.0) % MCV 88.4 (80-100) fl MCH 30.1 (26-34) pg MCHC 34.1 (32-36) g/dl RDW 13.9 (11.5-14.5) % Plt Count 328 (150-375) k/mm3 MPV 10.6 H (7.4-10.4) fl Immature Gran % (Auto) 0.4 (0-0.5) % Neut % (Auto) 47.2 (45.5-73.1) % Lymph % (Auto) 36.7 (18.3-44.2) % [place] % (Auto) 10.9 H (2.6-8.5) % Eos % (Auto) 2.2 (0-4.4) % Baso % (Auto) 2.6 H (0.2-1.2) % Lymph # (Auto) 1.98
[2020-09-16 15:56] LABS: WBC Urine 0-3 /hpf (0-3)
[2020-09-16 16:52] VITALS: BP 118/79; PULSE 70; RESP 18; O2SAT 100
== END 2020-09-16 16:54 | disposition home or self-care (01) ==
PROVIDERS: Family Medicine; Emergency Provider Emergency Medicine
DX: R31.9 Hematuria, unspecified (principal); E11.9 Type 2 diabetes mellitus without complications; I10 Essential (primary) hypertension; Z79.84 Long term (current) use of oral hypoglycemic drugs
CPT/HCPCS: 36415; 80053; 81001; 85025; 99283

== ENCOUNTER 2020-09-16 22:33 | Emergency (ER) | payer OTHER, SELFPAY ==
[2020-09-16 22:54] VITALS: BP 123/77; PULSE 89; RESP 18; TEMP 36.3; O2SAT 99
--- NOTE | 2020-09-16 23:02 | PC.NURSE ---
Patient decided to go to [facility]- where my doctors are as you probably can't do anything for me here tonight. I just got done talking with my GF and she said the same thing . Patient ambulatory from ED with steady gait
== END 2020-09-16 23:17 | disposition left against medical advice (07) ==
LOC: ANHED 23:07
DX: Z53.21 Procedure and treatment not carried out due to patient leaving prior to being seen by health care provider (principal)
CPT/HCPCS: 99199

== ENCOUNTER → 2020-12-10 02:37 | Outpatient (CLI) | payer OTHER, SELFPAY ==
[2020-12-10 19:28] LABS: SARS-CoV-2 RNA PCR Negative
== END ==
DX: R05 Cough (principal); Z20.822 Contact with and (suspected) exposure to COVID-19
CPT/HCPCS: C9803; U0003; U0005

== ENCOUNTER 2021-02-20 20:57 | Emergency (ER) | payer OTHER, SELFPAY ==
--- NOTE | ~2021-02-20 | XR_ITS ---
XR chest 1V portable 02/20/2021 21:49 Indication: Body aches. Cough. Procedure: AP portable chest Comparison: No prior studies for comparison. Findings: Heart size upper normal. There is bilateral perihilar infiltrates with peribronchial thicke vanita. No pleural effusion or pneumothorax. No acute osseous abnormality. Impression: 1: Bilateral perihilar infiltrates with peribronchial thickening. Consider mild interstitial edema an d pneumonia. Reviewed, dictated and finalized at location A. ING SUPERVISOR Impression: 1: Bilateral perihilar infiltrates with peribronchial thickening. Consider mild interstitial edema and pneumonia.
[2021-02-20 21:29] VITALS: BP 133/87; PULSE 82; RESP 18; TEMP 36.4; O2SAT 98
--- NOTE | 2021-02-20 21:43 | ED.URI ---
HPI - URI/Sore Throat General Chief Complaint: Upper Respiratory Infection Stated Complaint: I feel terrible Time Seen by Provider: 02/20/21 21:41 Source: patient Mode of arrival: ambulatory Limitations: no limitations History of Present Illness HPI Narrative: Patient is a 61-year-old male presenting for evaluation of sore throat, rhinorrhea, myalgias, diarrhea. Patient states he has felt unwell over the past 72 hours. Patient reports aches, pain throughout all of the muscles and joints in his body. Patient states he has been ambulatory. He reports sore throat, rhinorrhea, loss of sense of taste and smell. Patient states he has been vaccinated for Covid, also reports history of booster. He reports recent sick contact, states that he has also been around many children. He denies rash. He denies any brii chest pain, abdominal pain. Denies current shortness of breath. Related Data Home Medications Medication Instructions Recorded Confirmed lisinopril 20 mg PO DAILY 07/13/20 07/13/20 metformin 1,000 mg PO BID 07/13/20 07/13/20 simvastatin 10 mg PO HS 07/13/20 07/13/20 Allergies Allergy/AdvReac Type Severity Reaction Status Date / Time empagliflozin Allergy Hives Verified 02/20/21 21:31 [From Jardiance] Review of Systems Review of Systems: CONSTITUTIONAL: Denies fever EYES: Denies visual changes, redness, or discharge. ENT: Reports rhinorrhea, congestion, sore throat CARDIOVASCULAR: Denies chest pain, palpitations, or edema. RESPIRATORY: Reports dry cough without shortness of breath GASTROINTESTINAL: Denies abdominal pain, nausea, vomiting, reports diarrhea GENITOURINARY: Denies dysuria or hematuria. SKIN: Denies rash or itching. MUSCULOSKELETAL: Reports myalgias, arthralgias NEUROLOGIC: Denies headache, numbness, or weakness. [facility] Past Medical History Medical History History of diabetes mellitus History of hypertension Social History Social History Smoking status: Never smoker Gender identity (if verbalized by the patient): Male Exam Narrative: GENERAL: Awake, alert, conversant, well-appearing HEAD: Normocephalic, atraumatic. EYES: PERRLA and EOMI. ENT: Nares clear, no rhinorrhea or epistaxis. Mucous membranes moist. NECK: Supple. CHEST: No respiratory distress, breathing even and non labored, no audible wheezing, no rhonchi HEART: Regular rate, sinus rhythm ABDOMEN:Non distended, non tender EXTREMITIES: Normal range of motion. No edema. SKIN: Warm, dry, no rash. NEURO:No focal deficits. Alert and oriented x3. Finger to nose intact bilaterally. EOMs intact without nystagmus. No facial droop/asymmetry noted bilaterally. Grimace intact. Intact sensation in face. Hearing intact bilaterally. Strength 5/5 bilateral upper extremities. Strength 5/5 bilateral lower extremities. Ambulatory with a narrow base, steady gait, no ataxia. Course Vital Signs Vital signs: Vital Signs Temperature 36.4 C L 02/20/21 21:29 Pulse Rate 82 02/20/21 21:29 Respiratory Rate 18 02/20/21 21:29 Blood Pressure 133/87 02/20/21 21:29 Pulse Oximetry 98 02/20/21 21:29 Temperature 36.4 C L 02/20/21 21:29 Pulse Rate 82 02/20/21 22:33 Respiratory Rate 18 02/20/21 22:33 Blood Pressure 145/101 H 02/20/21 22:33 Pulse Oximetry 99 02/20/21 22:33 MDM - URI/Sore Throat MDM Narrative Medical decision making narrative: Patient presenting for evaluation of rhinorrhea, congestion, sore throat, cough. At the time of assessment, ABCs are intact and vital signs are stable. Patient is not hypoxic. He is well-appearing at the time of physical assessment. No focal findings on auscultation of the lungs. Laboratory results are reassuring. No leukocytosis. Patient is not septic. No severe electrolyte derangement. No elevation in CK or troponin. Chest x-ray is concerning for possible developin
--- NOTE | 2021-02-20 22:03 | ECG_ITS ---
Measurements Intervals [place] Rate: 77 P: 44 UT: 164 QRS: 8 QRSD: 98 T: 57 QT: 371 QTc: 422 Interpretive Statements SINUS RHYTHM NORMAL ECG Electronically Signed On 02-21-2021 6:33:19 CLINICAL ASSESSMENT MANAGER by Emil Hawk D.O.
[2021-02-20] MEDS: KETOROLAC (*BKC) 60 MG/2 ML VIAL 30 MG IM (22:17)
[2021-02-20] MEDS: ACETAMINOPHEN 500 MG TABLET 1000 MG PO (22:17)
[2021-02-20 22:33] VITALS: BP 145/101; PULSE 82; RESP 18; O2SAT 99
[2021-02-20 22:33] LABS: Basophils Absolute Auto 0.2 K/mm3 (0.0-0.1); Basophils Percent Auto 2.2 % (0.2-1.2); Eosinophils Absolute Auto 0.3 K/mm3 (0-0.3); Hematocrit 44.8 % (42.0-52.0); Hemoglobin 15.4 g/dL (14.0-18.0); Immature Granulocyte Absolute 0.07 K/mm3 (0.00-0.031); Immature Granulocyte Percent A 0.8 % (0-0.5); Lymphocytes Absolute Auto 2.23 K/mm3 (0.9-3.2); Lymphocytes Percent Auto 26.1 % (18.3-44.2); Mean Corpuscular HGB Conc 34.4 g/dl (32-36); Mean Corpuscular Hemoglobin 30.6 pg (26-34); Mean Corpuscular Volume 89.1 fl (80-100); Mean Platelet Volume 10.6 fl (7.4-10.4); Monocytes Percent Auto 11.3 % (2.6-8.5); Neutrophils Absolute Auto 4.8 K/mm3 (1.3-6.7); Neutrophils Percent Auto 56.6 % (45.5-73.1); Platelet Count Result 294 k/mm3 (150-375); Red Blood Count 5.03 M/mm3 (4.6-6.20); White Blood Count 8.6 K/mm3 (4.5-10.0)
[2021-02-20 23:17] LABS: Alanine Aminotransferase 25 U/L (4-50); Albumin Level 4.4 g/dL (3.5-5.1); Alkaline Phosphatase 73 U/L (38-126); Anion Gap 7 mmol/L (8-16); Aspartate Amino Transferase 26 U/L (17-59); Bilirubin,Total 0.4 mg/dL (0.2-1.3); Blood Urea Nitrogen 9 mg/dL (9-20); Calcium 9.6 mg/dL (8.4-10.2); Carbon Dioxide 27 mmol/L (22-30); Chloride 102 mmol/L (98-107); Creatine Kinase 47 U/L (55-170); Estimated CRCL calculation 90 ml/min; Estimated Glomerular Filt Rate > 60; Glucose 111 mg/dL (65-110); Potassium 3.9 mmol/L (3.4-5.0); Sodium 136 mmol/L (137-145)
[2021-02-20 23:29] LABS: NT Pro B Type Natriuretic Pept 489 pg/mL (5-100); Troponin I < 0.012 ng/mL (0.000-0.034)
[2021-02-21 00:09] VITALS: BP 153/101; PULSE 73; RESP 16; O2SAT 98
[2021-02-21 17:55] LABS: SARS-CoV-2 RNA PCR Negative
== END 2021-02-21 00:04 | disposition home or self-care (01) ==
PROVIDERS: Emergency Provider Emergency Medicine
DX: J18.9 Pneumonia, unspecified organism (principal); J06.9 Acute upper respiratory infection, unspecified; Z20.822 Contact with and (suspected) exposure to COVID-19; E11.9 Type 2 diabetes mellitus without complications; I10 Essential (primary) hypertension; Z79.84 Long term (current) use of oral hypoglycemic drugs
CPT/HCPCS: 36415; 71045; 80053; 82550; 83880; 84484; 85025; 87081; 87804; 87880; 93005; 96372; 99284; A9270; C9803; J1885; U0003; U0005

== ENCOUNTER → 2021-03-06 10:40 | Outpatient (CLI) | payer OTHER, SELFPAY ==
[2021-03-06 19:11] LABS: SARS-CoV-2 RNA PCR Negative
== END ==
PROVIDERS: PCP Emergency Medicine; Visit Provider Emergency Medicine
DX: J06.9 Acute upper respiratory infection, unspecified (principal); Z20.822 Contact with and (suspected) exposure to COVID-19
CPT/HCPCS: C9803; U0003; U0005

== ENCOUNTER 2021-03-07 06:37 | Outpatient (CLI) | payer OTHER, SELFPAY ==
--- NOTE | ~2021-03-07 | XR_ITS ---
EXAMINATION: XR chest 2V DATE: 03/07/2021 06:55 INDICATION: Cough and shortness of breath TECHNIQUE: PA and lateral views of the chest are obtained. COMPARISON: 02/20/2021 FINDINGS: The lungs are free of acute opacities. There is no pleural effusion or pneumothorax. The ca rdiomediastinal silhouette is normal. There is mild thoracic spondylosis. IMPRESSION: 1. No acute cardiopulmonary abnormality. Reviewed, dictated and finalized at location A. STANT HVAC MECHANIC
== END 2021-03-07 06:38 | disposition home or self-care (01) ==
LOC: ANHIMG 06:39
PROVIDERS: PCP Emergency Medicine; Visit Provider Emergency Medicine
DX: R05.9 Cough, unspecified (principal); J18.9 Pneumonia, unspecified organism
CPT/HCPCS: 71046

== ENCOUNTER 2021-03-07 08:07 | Emergency (ER) | payer OTHER, SELFPAY ==
--- NOTE | ~2021-03-07 | XR_ITS ---
EXAMINATION: XR shoulder LT min 2V DATE: 03/07/2021 10:49 INDICATION: Left shoulder pain. TECHNIQUE: 4 views of left shoulder were obtained. COMPARISON: None. FINDINGS: Bone alignment is normal. No fracture. There is mild osteoarthritis of glenohumeral joint a nd moderate osteoarthritis of acromioclavicular joint. IMPRESSION: 1. Polyarticular osteoarthritis. Reviewed, dictated and finalized at location A. GENCY MEDICINE
[2021-03-07 08:16] VITALS: BP 172/102; PULSE 83; RESP 17; TEMP 36.1; O2SAT 98
--- NOTE | 2021-03-07 09:57 | ECG_ITS ---
Measurements Intervals [place] Rate: 65 P: 31 GA: 159 QRS: 17 QRSD: 98 T: 44 QT: 397 QTc: 413 Interpretive Statements SINUS RHYTHM NORMAL ECG Electronically Signed On 03-07-2021 10:28:03 PRODUCT DEVELOPMENT TECHNICIAN by Emil Hawk D.O.
--- NOTE | 2021-03-07 10:15 | ED.URI ---
HPI - URI/Sore Throat General Chief Complaint: Upper Respiratory Infection Stated Complaint: covid sx Time Seen by Provider: 03/07/21 09:12 Source: patient Mode of arrival: ambulatory Limitations: no limitations History of Present Illness HPI Narrative: This is a 61-year-old male that presents to the emergency department for cold symptoms present over the last 2 weeks. Reports he was recently treated with antibiotics for pneumonia. Reports he is still having a productive cough and myalgias. Also reports some dysuria. Also reports left anterior shoulder pain. The pain is worse with movement. Relieved with rest. This has been ongoing for years. Denies fever, chest pain, shortness of breath, flank pain, or vomiting. Related Data Home Medications Medication Instructions Recorded Confirmed lisinopril 20 mg PO DAILY 07/13/20 07/13/20 metformin 1,000 mg PO BID 07/13/20 07/13/20 simvastatin 10 mg PO HS 07/13/20 07/13/20 Allergies Allergy/AdvReac Type Severity Reaction Status Date / Time empagliflozin Allergy Hives Verified 02/20/21 21:31 [From Jardiance] Review of Systems Review of Systems: CONSTITUTIONAL: Denies fever CARDIOVASCULAR: Denies chest pain, or edema. RESPIRATORY: Reports cough. Denies dyspnea. MUSCULOSKELETAL: Reports joint pain, and myalgia. All systems reviewed & are unremarkable except as noted in HPI and below PMFSH Past Medical History Medical History History of diabetes mellitus History of hypertension Social History Social History Smoking status: Never smoker Gender identity (if verbalized by the patient): Male Exam Narrative: GENERAL: Well-appearing, well-nourished, and in no acute distress. HEAD: Normocephalic, atraumatic. EYES: EOMI. ENT: Nares clear, no rhinorrhea or epistaxis. Mucous membranes moist. Oropharynx without tonsillar hypertrophy exudate or other lesions. Bilateral TMs pearly esqueda non-bulging NECK: Supple. No adenopathy or masses. CHEST: Clear to auscultation. No respiratory distress. No wheezes rales or rhonchi HEART: Regular rate and rhythm. No murmur heard. Normal peripheral pulses. EXTREMITIES: Normal range of motion. No edema. SKIN: Warm, dry, no rash. NEURO: No focal deficits. Alert and oriented x3. PSYCH: Normal mood and affect Course Vital Signs Vital signs: Vital Signs Temperature 97.0 F L 03/07/21 08:16 Pulse Rate 83 03/07/21 08:16 Respiratory Rate 17 03/07/21 08:16 Blood Pressure 172/102 H 03/07/21 08:16 Pulse Oximetry 98 03/07/21 08:16 Temperature 97.0 F L 03/07/21 08:16 Pulse Rate 83 03/07/21 08:16 Respiratory Rate 17 03/07/21 08:16 Blood Pressure 172/102 H 03/07/21 08:16 Pulse Oximetry 98 03/07/21 08:16 MDM - URI/Sore Throat MDM Narrative Medical decision making narrative: Patient presents to the emergency department for ongoing cold symptoms. Patient is afebrile and nontoxic-appearing. Patient saturation has remained normal on room air. CBC and metabolic panel without concerning findings. BNP is not concerningly elevated. Chest x-ray without acute cardiopulmonary abnormality. Patient also reporting some dysuria. UA is normal. EKG without concerning changes and baseline troponin is negative. Patient was updated on case findings. He is stable and felt appropriate for further outpatient evaluation. He did just have a negative coronavirus swab yesterday. Patient was instructed on continued care of viral infection. He is to follow-up with his primary care doctor. He was given warnings to return to the ER Lab Data Attestation: I reviewed the patient's lab results. Result diagrams: 03/07/21 10:21 03/07/21 10:21 Labs: Lab Results 03/07/21 03/07/21 03/07/21 Range/Units 10:21 10:21 10:21 WBC 6.1 (4.5-10.0) K/mm3 RBC 5.08 (4.6-6.20) M/mm3 Hgb 15.2 (14.
--- NOTE | 2021-03-07 10:21 | PC.NURSE ---
Attempted to collect flu swab on pt. Pt grabbed RN's hand and pushed away. Pt cannot handle the pain of the influenza swab and is refusing.
[2021-03-07 10:33] LABS: Basophils Absolute Auto 0.2 K/mm3 (0.0-0.1); Basophils Percent Auto 2.6 % (0.2-1.2); Eosinophils Absolute Auto 0.1 K/mm3 (0-0.3); Eosinophils Percent Auto 1.6 % (0-4.4); Hematocrit 45.2 % (42.0-52.0); Hemoglobin 15.2 g/dL (14.0-18.0); Immature Granulocyte Absolute 0.01 K/mm3 (0.00-0.031); Immature Granulocyte Percent A 0.2 % (0-0.5); Lymphocytes Absolute Auto 1.84 K/mm3 (0.9-3.2); Lymphocytes Percent Auto 30.3 % (18.3-44.2); Mean Corpuscular HGB Conc 33.6 g/dl (32-36); Mean Corpuscular Hemoglobin 29.9 pg (26-34); Mean Platelet Volume 10.5 fl (7.4-10.4); Monocytes Absolute Auto 0.6 K/mm3 (0.1-0.6); Monocytes Percent Auto 10.4 % (2.6-8.5); Neutrophils Absolute Auto 3.3 K/mm3 (1.3-6.7); Neutrophils Percent Auto 54.9 % (45.5-73.1); Platelet Count Result 270 k/mm3 (150-375); Red Blood Count 5.08 M/mm3 (4.6-6.20); Red Cell Distribution Width 13.9 % (11.5-14.5); White Blood Count 6.1 K/mm3 (4.5-10.0)
[2021-03-07 10:36] LABS: Add Urine Microscopic? NO; Appearance Urine Clear (Clear); Bilirubin Urine Negative (Negative); Blood Urine Negative (Negative); Color Urine Yellow (Yellow); Glucose Urine UA Negative (Negative); Ketones Urine Negative (Negative); Leukocyte Esterase Ur Negative LEU/UL (Negative); Nitrate Urine Negative (Negative); Protein Urine Negative (Negative); Specific Grav Ur 1.012 (1.001-1.035); Urobilinogen Urine Negative mg/dL (<2.0)
[2021-03-07 10:46] LABS: INR 0.9; Prothrombin Time 12.3 Seconds (11.1-14.7)
[2021-03-07 10:47] LABS: Alanine Aminotransferase 21 U/L (4-50); Albumin Level 4.4 g/dL (3.5-5.1); Alkaline Phosphatase 63 U/L (38-126); Anion Gap 5 mmol/L (8-16); Aspartate Amino Transferase 18 U/L (17-59); Bilirubin,Total 0.5 mg/dL (0.2-1.3); Blood Urea Nitrogen 10 mg/dL (9-20); Calcium 8.8 mg/dL (8.4-10.2); Carbon Dioxide 26 mmol/L (22-30); Chloride 101 mmol/L (98-107); Estimated CRCL calculation 94 ml/min; Estimated Glomerular Filt Rate > 60; Glucose 143 mg/dL (65-110); Partial Thromboplastin Time 27.1 SECONDS (22.3-36.8); Potassium 4.2 mmol/L (3.4-5.0); Sodium 132 mmol/L (137-145)
[2021-03-07 10:56] LABS: NT Pro B Type Natriuretic Pept 200 pg/mL (5-100)
[2021-03-07 11:01] LABS: Troponin I < 0.012 ng/mL (0.000-0.034)
[2021-03-07 11:40] VITALS: BP 126/90; PULSE 63; RESP 18; O2SAT 99
== END 2021-03-07 12:08 | disposition home or self-care (01) ==
PROVIDERS: Physician Assistant; Emergency Provider Emergency Medicine; PCP Emergency Medicine
DX: B34.9 Viral infection, unspecified (principal); M25.512 Pain in left shoulder; G89.29 Other chronic pain; E11.9 Type 2 diabetes mellitus without complications; I10 Essential (primary) hypertension; Z79.84 Long term (current) use of oral hypoglycemic drugs
CPT/HCPCS: 36415; 71046; 73030; 80053; 81003; 83880; 84484; 85025; 85610; 85730; 87804; 93005; 99284

== ENCOUNTER 2021-03-22 12:58 | Emergency (ER) | payer OTHER, SELFPAY ==
[2021-03-22 13:13] VITALS: BP 151/101; PULSE 104; RESP 17; TEMP 36.5; O2SAT 98
--- NOTE | 2021-03-22 18:04 | PC.NURSE ---
pt called x3 for re eval of vs, n/a in wr.
== END 2021-03-23 04:26 | disposition left against medical advice (07) ==
PROVIDERS: PCP Emergency Medicine
DX: R50.9 Fever, unspecified (principal)
CPT/HCPCS: 99199

== ENCOUNTER 2021-04-07 16:03 | Outpatient (CLI) | payer OTHER, SELFPAY ==
--- NOTE | ~2021-04-07 | CT_ITS ---
EXAMINATION: CT lung screening DATE: 04/07/2021 16:20 INDICATION: HX OF TOBACCO DEPENDENCE TECHNIQUE: Computed tomography (CT) of the chest was performed without intravenous contrast. Addition al 3D reconstructions utilizing coronal maximum intensity projection (MIP) were performed. Automated exposure control and iterative reconstruction technique were employed. The dose-length product was 11 2.38 mGy-cm. COMPARISON: 02/21/2020 FINDINGS: Lungs are clear with no suspicious pulmonary nodules, pneumonia, pulmonary edema or pleural effusion. Heart size is normal. No pericardial effusion. Thoracic aorta is normal in caliber. No pathologicall y enlarged thoracic lymphadenopathy. Diffuse hepatic steatosis. 1 cm cyst in the right hepatic lobe. Mild thoracic spondylosis. Chronic mild anterior wedging at T12. IMPRESSION: 1. Lung-RADS category 1: Negative. Continue annual screening with noncontrast low-dose chest CT in 12 months. Reviewed, dictated and finalized at location B. S ACCOUNT REPRESENTATIVE IMPRESSION: 1. Lung-RADS category 1: Negative. Continue annual screening with noncontrast l ow-dose chest CT in 12 months.
== END 2021-04-07 16:04 | disposition home or self-care (01) ==
LOC: ANHIMG 16:04
PROVIDERS: PCP Emergency Medicine; Visit Provider Emergency Medicine
DX: Z12.2 Encounter for screening for malignant neoplasm of respiratory organs (principal); Z87.891 Personal history of nicotine dependence
CPT/HCPCS: 71271